=== PATIENT | male | born 2000 | race Caucasian/White ===

== ENCOUNTER → 2018-01-27 | Outpatient (CLI) | payer BC ==
[~2018-01-27] MED LIST: IBUP-1050 PO
--- NOTE | 2018-01-27 14:56 | DIAGNOSTIC IMAGING REPORT ---
R HIP UNILATERAL MIN 2 VIEWS CLINICAL HISTORY: RIGHT HIP PAIN COMPARISON: None FINDINGS: Alignment of the right hip is anatomic. No fracture or suspicious lesion is identified. Joint space is preserved. There is no evidence for avascular necrosis. IMPRESSION: Unremarkable right hip radiographs. Electronically signed by: Lazaro Mcgill M.D. 01/27/2018 2:54 PM Dictated Date/Time: 01/27/2018 2:49 PM
== END | disposition home or self-care (01) ==
LOC: C.RDSM 18:07
PROVIDERS: ATTEND Family Medicine
DX: M25.551 Pain in right hip (principal)

== ENCOUNTER 2020-12-09 20:19 | Inpatient (IN) ==
[2020-12-09 20:58] LABS: Appearance Urine Cloudy (Clear); Bacteria Urine Automated Negative (Negative); Bilirubin Urine Negative (Negative); Blood Urine Negative (Negative); Cast Urine Automated 0 /lpf (0-5); Color Urine Yellow; Epithelial Cell Urine Auto 0-5 /lpf (0-5); Glucose Urine UA Negative (Negative); Ketones Urine Negative (Negative); Leukocyte Esterase Urine Negative (Negative); Nitrite Urine Negative (Negative); Protein Urine Negative (Negative); RBC Urine Automated 0-4 /hpf (0-4); Specific Gravity Urine 1.021 (1.000-1.030); Urobilinogen Urine Negative (Negative); WBC Urine Automated 0 /hpf (0-5)
[2020-12-09 21:13] LABS: Amphetamines+Metham, Urine Neg (Neg); Barbiturates, Urine Neg (Neg); Benzodiazepine, Urine Neg (Neg); Cocaine, Urine Neg (Neg); MDMA (Ecstacy), Urine Neg (Neg); Methadone, Urine Neg (Neg); Opiate, Urine Neg (Neg); Phencyclidine, Urine Neg (Neg)
[2020-12-09 21:20] LABS: Basophils # (auto) 0.01 K/uL (0-0.2); Basophils % (auto) 0.2 %; Eosinophils # (auto) 0.08 K/uL (0-0.5); Eosinophils % (auto) 1.4 %; Hematocrit (blood only) 45.5 % (42-52); Hemoglobin 15.6 g/dL (14.0-18.0); Lymphocytes # (auto) 2.06 K/uL (1.2-3.4); Lymphocytes % (auto) 35.5 %; Mean Corpuscular Hemoglobin 30.3 pg (25-34); Mean Corpuscular Hgb Conc 34.3 g/dL (32-36); Mean Corpuscular Volume 88.3 fL (80-100); Mean Platelet Volume 9.5 fL (7.4-10.4); Monocytes # (auto) 0.35 K/uL (0.11-0.59); Neutrophils # (auto) 3.31 K/uL (1.4-6.5); Neutrophils % (auto) 56.9 %; Platelet Count 257 K/uL (130-400); RDW Standard Deviation 38.4 fL (36.4-46.3); Red Blood Count 5.15 M/uL (4.7-6.1); White Blood Count 5.81 K/uL (4.8-10.8)
[2020-12-09 21:36] LABS: Albumin Level 4.1 gm/dl (3.4-5.0); Calcium 9.2 mg/dl (8.5-10.1); Creatinine Clr Calc Pharmacy 93.1 ml/min; Est GFR (African American) 100.9; Est GFR (Non-African American) 87.1; Potassium 4.2 mmol/L (3.5-5.1)
[2020-12-09 21:47] LABS: Albumin Globulin Ratio 1.5 (0.9-2); Bilirubin,Total 0.6 mg/dl (0.2-1); Globulin 2.8 gm/dl (2.5-4.0); Thyroid Stimulating Hormone 2.05 uIu/ml (0.300-4.500); Total Protein 6.9 gm/dl (6.4-8.2)
[2020-12-09 21:48] LABS: Acetaminophen < 2 ug/ml (10-30); Salicylate < 1.7 mg/dl (2.8-20)
--- NOTE | 2020-12-10 01:30 | Emergency Department Note ---
Impression & Plan Mood disorder, Suicidal ideation ED Provider Note INFORMANT: Patient ED PROVIDER(S): Jeffery Altman MD CHIEF COMPLAINT: Mental health evaluation PLAN: Disposition: Admitted to 3 S. Condition: Good Outpatient prescription management: none Referral: None MEDICAL DECISION MAKING: Patient presented to emergency room complaining of suicidal ideation. Physical examination did not reveal any emergent medical findings. He had unremarkable blood work and tox screen. The patient was evaluated by the ER psychiatric catalytic case operator. Referral was made to 3 . The patient was evaluated by the 3 S. liaison. The patient was voluntarily admitted for further management. Triage Nursing notes reviewed and agree them. Additional history obtained from patient's mother. Vital Signs: reviewed and remarkable for no significant abnormalities Differential diagnosis: Mood disorder, infection, hypoglycemia, electrolyte abnormalities, cardiac sources, intracerebral event, toxicologic, trauma, neurologic, as well as other pathologies. Diagnostics interpreted by me: Imaging studies: Deferred Consultation(s): 3 S. mental health HPI: The patient is a 20 year old male who presents to the Emergency Room with complaints of suicidal ideation. This started a few weeks ago worsening and is worsening. The patient also notes the following associated symptoms, anxiety and depression. The patient has found no relieving factors. Current pain is rated as 0/10. Patient states he was using marijuana for years to self medicate. He stopped 2 weeks ago. He has previously seen psychiatry. No recent medical illnesses. Pt denies LOC, headache, fevers, chills, diaphoresis, visual changes, neck pain, chest pain, breathing difficulties, nausea, vomiting, abdominal pain, back pain, melena, hematochezia, urinary symptoms, numbness, weakness, lymphadenopathy, rash, or other complaints. ROS: See above HPI for pertinent positives & negatives. A total of 10 systems reviewed and were otherwise negative. PAST MEDICAL HISTORY:See Below , mood disorder PAST SURGICAL HISTORY:See Below, FAMILY HISTORY:See Below SOCIAL HISTORY:See Below, marijuana abuse HOME MEDICATIONS:See Below ALLERGIES:See Below VITALS:See Below PHYSICAL EXAMINATION: GENERAL: Awake, alert, mildly depressed-appearing, in no distress HENT: Normocephalic, atraumatic. Oropharynx unremarkable. EYES: Normal conjunctiva. Sclera non-icteric. NECK: Inspection normal. Non-tender. Supple. No nuchal rigidity. FROM. No masses. RESPIRATORY: Clear to auscultation. No wheezes. No rales. Normal respiratory ef fort. CARDIAC: Normal rate. Normal rhythm. No murmurs. No rubs. Extremities warm and well perfused. Pulses equal. No JVD. GI: Soft, non-distended. No tenderness to palpation. No rebound or guarding. No masses. RECTAL: Deferred. MUSCULOSKELETAL: Atraumatic. Chest examination reveals no tenderness. The back is symmetrical on inspection without obvious abnormality. There is no CVA tenderness to palpation. No joint edema. LOWER EXTREMITIES: Calves are equal size bilaterally and non-tender. No edema. No discoloration. NEURO: Normal sensorium. No sensory or motor deficits noted. SKIN: No rash or jaundice noted. PSYCH: Suicidal ideation. Depressed mood and flat affect. No hallucinations or delusions. Jeffery Altman MD Past Med/Surg History Medical History (Updated 12/10/20 @ 01:29 by Jeffery Altman MD) Fever Lyme disease Myalgia Stomach problems Family History Other No pertinent family history in first degree relatives Social History Smoking Status: Current every day smoker Tobacco Type: E-cigarettes / Vaping Feels Safe at Home: Yes Allergies Allergies Allergy/AdvReac Type Severity Reaction Status Date / Time No Known Allergies Allergy Verified 12/09/20 21:13 Home Meds Home Medications Medication Instructions Recorded Confirmed No Known Home Medications 12/09/20 12/09/20 Results & Data (ED) Vital Signs Vital Signs - 24 hr 12/09/20 20:23 12/09/20 22:20 Temperature 37.2 C Temperature Source Temporal Artery Scan Pulse Rate 75 Pulse Rate [Finger] 61 Respiratory Rate 18 14 Respiratory Effort / Characteristics Non-Labored Spontaneous Respiratory Depth Normal Respiratory Pattern Regular Blood Pressure 146/89 H Blood Pressure [Right Arm] 127/79 Blood Pressure Mean 108 Blood Pressure Mean [Right Arm] 95 Blood Pressure Position Sitting Pulse Oximetry 99 100 Oxygen Delivery Method Room Air Room Air Sepsis Recent Fever Within 48 Hours No Sepsis New/Unexplained Change in Mental Status No Sepsis Action Taken by Nursing No Action Required Laboratory Data Result diagrams: 12/09/20 21:05 12/09/20 21:05 Lab Results 12/09/20 12/09/20 12/09/20 Range/Units 20:43 20:43 21:05 WBC 5.81 (4.8-10.8) K/uL RBC 5.15 (4.7-6.1) M/uL Hgb 15.6 (14.0-18.0) g/dL Hct 45.5 (42-52) % MCV 88.3 (80-100) fL MCH 30.3 (25-34) pg MCHC 34.3 (32-36) g/dL RDW Std Deviation 38.4 (36.4-46.3) fL RDW Coeff of Gregory 12.0 (11.5-14.5) % Plt Count 257 (130-400) K/uL MPV 9.5 (7.4-10.4) fL Immature Gran % (Auto) 0.0 % Neut % (Auto) 56.9 % Lymph % (Auto) 35.5 % [place] % (Auto) 6.0 % Eos % (Auto) 1.4 % Baso % (Auto) 0.2 % Neut # (Auto) 3.31 (1.4-6.5) K/uL Lymph # (Auto) 2.06 (1.2-3.4) K/uL [place] # (Auto) 0.35 (0.11-0.59) K/uL Eos # (Auto) 0.08 (0-0.5) K/uL Baso # (Auto) 0.01 (0-0.2) K/uL Immature Gran # (Auto) 0.00 (0.00-0.02) K/uL Sodium (136-145) mmol/L Potassium (3.5-5.1) mmol/L Chloride (98-107) mmol/L Carbon Dioxide (21-32) mmol/L Anion Gap (3-11) BUN (7-18) mg/dl Creatinine (0.6-1.4) mg/dl Est Cr Clr Drug Dosing ml/min Est GFR ( Amer) Est GFR (Non-Af Amer) BUN/Creatinine Ratio (10-20) Glucose (70-99) mg/dl Calcium (8.5-10.1) mg/dl Total Bilirubin (0.2-1) mg/dl AST (15-37) U/L ALT (12-78) U/L Alkaline Phosphatase (45-117) U/L Total Protein (6.4-8.2) gm/dl Albumin (3.4-5.0) gm/dl Globulin (2.5-4.0) gm/dl Albumin/Globulin Ratio (0.9-2) TSH (0.300-4.500) uIu/ml Urine Color Yellow Urine Appearance Cloudy A (Clear) Urine pH 7.0 (4.5-7.5) Ur Specific [place] 1.021 (1.000-1.030) Urine Protein Negative (Negative) Urine Glucose (UA) Negative (Negative) Urine Ketones Negative (Negative) Urine Blood Negative (Negative) Urine Nitrite Negative (Negative) Urine Bilirubin Negative (Negative) Urine Urobilinogen Negative (Negative) Ur Leukocyte Esterase Negative (Negative) Urine WBC (Auto) 0 (0-5) /hpf Urine RBC (Auto) 0-4 (0-4) /hpf U Hyaline Cast (Auto) 0 (0-5) /lpf U Epithel Cells (Auto) 0-5 (0-5) /lpf Urine Bacteria (Auto) Negative (Negative) Salicylates (2.8-20) mg/dl Urine Opiates Screen Neg (Neg) Ur Methadone, Qual Neg (Neg) Acetaminophen (10-30) ug/ml Urine Barbiturates Neg (Neg) Ur Phencyclidine (PCP) Neg (Neg) U Amphetamin/Meth Scrn Neg (Neg) MDMA (Ecstasy) Screen Neg (Neg) U Benzodiazepines Scrn Neg (Neg) Ur Cocaine Metabolite Neg (Neg) U Marijuana (THC) Screen Neg (Neg) Ethyl Alcohol mg/dL (0-3) mg/dl COVID-19 Eval Order SARS-CoV-2, RNA, NAAT (NEGATIVE) 12/09/20 12/09/20 12/09/20 Range/Units 21:05 21:05 21:05 WBC (4.8-10.8) K/uL RBC (4.7-6.1) M/uL Hgb (14.0-18.0) g/dL Hct (42-52) % MCV (80-100) fL MCH (25-34) pg MCHC (32-36) g/dL RDW Std Deviation (36.4-46.3) fL RDW Coeff of Gregory (11.5-14.5) % Plt Count (130-400) K/uL MPV (7.4-10.4) fL Immature Gran % (Auto) % Neut % (Auto) % Lymph % (Auto) % [place] % (Auto) % Eos % (Auto) % Baso % (Auto) % Neut # (Auto) (1.4-6.5) K/uL Lymph # (Auto) (1.2-3.4) K/uL [place] # (Auto) (0.11-0.59) K/uL Eos # (Auto) (0-0.5) K/uL Baso # (Auto) (0-0.2) K/uL Immature Gran # (Auto) (0.00-0.02) K/uL Sodium 140 (136-145) mmol/L Potassium 4.2 (3.5-5.1) mmol/L Chloride 109 H (98-107) mmol/L Carbon Dioxide 27 (21-32) mmol/L Anion Gap 4.0 (3-11) BUN 15 (7-18) mg/dl Creatinine 1.18 (0.6-1.4) mg/dl Est Cr Clr Drug Dosing 93.1 ml/min Est GFR ( Amer) 100.9 Est GFR (Non-Af Amer) 87.1 BUN/Creatinine Ratio 13.0 (10-20) Glucose 100 H (70-99) mg/dl Calcium 9.2 (8.5-10.1) mg/dl Total Bilirubin 0.6 (0.2-1) mg/dl AST 16 (15-37) U/L ALT 24 (12-78) U/L Alkaline Phosphatase 102 (45-117) U/L Total Protein 6.9 (6.4-8.2) gm/dl Albumin 4.1 (3.4-5.0) gm/dl Globulin 2.8 (2.5-4.0) gm/dl Albumin/Globulin Ratio 1.5 (0.9-2) TSH 2.050 (0.300-4.500) uIu/ml Urine Color Urine Appearance (Clear) Urine pH (4.5-7.5) Ur Specific [place] (1.000-1.030) Urine Protein (Negative) Urine Glucose (UA) (Negative) Urine Ketones (Negative) Urine Blood (Negative) Urine Nitrite (Negative) Urine Bilirubin (Negative) Urine Urobilinogen (Negative) Ur Leukocyte Esterase (Negative) Urine WBC (Auto) (0-5) /hpf Urine RBC (Auto) (0-4) /hpf U Hyaline Cast (Auto) (0-5) /lpf U Epithel Cells (Auto) (0-5) /lpf Urine Bacteria (Auto) (Negative) Salicylates < 1.7 L (2.8-20) mg/dl Urine Opiates Screen (Neg) Ur Methadone, Qual (Neg) Acetaminophen < 2 L (10-30) ug/ml Urine Barbiturates (Neg) Ur Phencyclidine (PCP) (Neg) U Amphetamin/Meth Scrn (Neg) MDMA (Ecstasy) Screen (Neg) U Benzodiazepines Scrn (Neg) Ur Cocaine Metabolite (Neg) U Marijuana (THC) Screen (Neg) Ethyl Alcohol mg/dL < 3.0 (0-3) mg/dl COVID-19 Eval Order SARS-CoV-2, RNA, NAAT (NEGATIVE) 12/09/20 12/09/20 Range/Units 22:50 22:50 WBC (4.8-10.8) K/uL RBC (4.7-6.1) M/uL Hgb (14.0-18.0) g/dL Hct (42-52) % MCV (80-100) fL MCH (25-34) pg MCHC (32-36) g/dL RDW Std Deviation (36.4-46.3) fL RDW Coeff of Gregory (11.5-14.5) % Plt Count (130-400) K/uL MPV (7.4-10.4) fL Immature Gran % (Auto) % Neut % (Auto) % Lymph % (Auto) % [place] % (Auto) % Eos % (Auto) % Baso % (Auto) % Neut # (Auto) (1.4-6.5) K/uL Lymph # (Auto) (1.2-3.4) K/uL [place] # (Auto) (0.11-0.59) K/uL Eos # (Auto) (0-0.5) K/uL Baso # (Auto) (0-0.2) K/uL Immature Gran # (Auto) (0.00-0.02) K/uL Sodium (136-145) mmol/L Potassium (3.5-5.1) mmol/L Chloride (98-107) mmol/L Carbon Dioxide (21-32) mmol/L Anion Gap (3-11) BUN (7-18) mg/dl Creatinine (0.6-1.4) mg/dl Est Cr Clr Drug Dosing ml/min Est GFR ( Amer) Est GFR (Non-Af Amer) BUN/Creatinine Ratio (10-20) Glucose (70-99) mg/dl Calcium (8.5-10.1) mg/dl Total Bilirubin (0.2-1) mg/dl AST (15-37) U/L ALT (12-78) U/L Alkaline Phosphatase (45-117) U/L Total Protein (6.4-8.2) gm/dl Albumin (3.4-5.0) gm/dl Globulin (2.5-4.0) gm/dl Albumin/Globulin Ratio (0.9-2) TSH (0.300-4.500) uIu/ml Urine Color Urine Appearance (Clear) Urine pH (4.5-7.5) Ur Specific [place] (1.000-1.030) Urine Protein (Negative) Urine Glucose (UA) (Negative) Urine Ketones (Negative) Urine Blood (Negative) Urine Nitrite (Negative) Urine Bilirubin (Negative) Urine Urobilinogen (Negative) Ur Leukocyte Esterase (Negative) Urine WBC (Auto) (0-5) /hpf Urine RBC (Auto) (0-4) /hpf U Hyaline Cast (Auto) (0-5) /lpf U Epithel Cells (Auto) (0-5) /lpf Urine Bacteria (Auto) (Negative) Salicylates (2.8-20) mg/dl Urine Opiates Screen (Neg) Ur Methadone, Qual (Neg) Acetaminophen (10-30) ug/ml Urine Barbiturates (Neg) Ur Phencyclidine (PCP) (Neg) U Amphetamin/Meth Scrn (Neg) MDMA (Ecstasy) Screen (Neg) U Benzodiazepines Scrn (Neg) Ur Cocaine Metabolite (Neg) U Marijuana (THC) Screen (Neg) Ethyl Alcohol mg/dL (0-3) mg/dl COVID-19 Eval [facility]-2, RNA, NAAT NEGATIVE (NEGATIVE) Discharge Plan Visit Data Chief Complaint: Mental Health Evaluation Stated Complaint: MENTAL HEALTH EVAL ED Provider: Jeffery Altman Discharge Problem: Mood disorder, Suicidal ideation Forms Stand Alone Forms: My [facility], Suicide Prevention Resources Prescriptions Prescriptions: No Action No Known Home Medications RF: 0 Referrals Referrals: Tomas Beth MD [Primary Care Provider] -
[2020-12-10] MEDS ORDERED: MAGNESIUM HYDROXIDE SUSP 30 ML UDC PO PRN (02:23)
[2020-12-10] MEDS ORDERED: hydrOXYzine HCl 25 MG TAB PO PRN ×2 (02:23)
[2020-12-10] MEDS ORDERED: SODIUM CHLORIDE 0.65% NA SOLN 45 ML (OCEAN) PRN (02:23)
[2020-12-10] MEDS ORDERED: ACETAMINOPHEN 325 MG TAB PO PRN (02:23)
[2020-12-10] MEDS ORDERED: BISMUTH SUBSALICYLATE LIQD 236 ML PO PRN (02:23)
[2020-12-10] MEDS ORDERED: ALUMINUM/MAGNESIUM SUSP 30 ML UDC PO PRN (02:23)
[2020-12-10] MEDS ORDERED: risperiDONE 1 MG TABLET PO PRN (02:24)
--- NOTE | 2020-12-10 08:19 | History & Physical ---
Date of Service December 10, 2020 Impression / Recommendations (1) Suicidal ideation: 12/10 -continue voluntary hospitalization, suicide checks for safety. Encourage group attendance and participation. Work on healthy coping skills and discharge safety plan. Family meeting with parents; reviewed recommendations including no access to medications or guns. (2) Mood disorder: 12/10 - Reviewed differential diagnosis, including irritable depression or bipolar type II. Reviewed that his symptoms are consistent with irritable depression, but could also represent hypomanic symptoms, although he reports chronic racing thoughts and irritability, rather than discrete episodes of hypomania. He does not meet full criteria for hypomania or bipolar 2. Discussed options of treating with an SSRI versus a mood stabilizer such as lamotrigine, which he did try in the past but cannot recall his response to, was also being taken along with an antipsychotic. Discussed the risks, benefits, and side effects of each, including the need to monitor for mood destabilization if we start with an antidepressant. After discussion he opted for a trial of sertraline. Reviewed the risk of destabilization, worsening irritability or anxiety, and the need to monitor for this, especially when initially starting the medication. Reviewed that it will take 4 to 6 weeks to see the full effect. Start 25 mg daily today and increase to 50 mg daily tomorrow. (3) Alcohol abuse: 12/10 - Brief intervention was offered and accepted Intervention (if performed) was greater than 5 min in length. Brief interventions include: 1. Assess Readiness to Quit, 2. Advise: Help Patient to Reduce or Abstain from Alcohol, 3. Agree: Set Specific, Feasible Goals, 4. Assist: Anticipate barriers, Problem-Solving Solutions. Social work to 5. Arrange: Referrals to appropriate treatment. Summary of intervention: The patient is in precontemplation stage with regards to transtheoretical model of change. The patient is advised to decrease alcohol consumption due to depressant effects and risk of interactions with prescription medications. The patient agreed to cut back on use, and will be provided with recovery materials to continue to education self on how to cope with their condition without drinking. -Referral for dual diagnosis outpatient treatment. Recovery protocol. (4) Cannabis abuse: 12/10 -patient was smoking daily, reports he stopped 2 weeks ago. Encourage ongoing efforts to reduce substance use, and refer for dual diagnosis outpatient treatment as above. Risk Factors Assessment Male: Yes : Yes Do You Have Access To A Gun?: Yes (At father's home, locked in a gun safe) Health Problems: No Mental Health Diagnoses: Yes Substance Use Disorders: Yes Previous Psychiatric Hospitalization: No Smoker: Yes Protective Factors Assessment : No Responsible for Young Children: No Employed: No Stable Relationships: No Supportive Family: Yes Good Rapport with Provider: No Psychiatric History Identifying Data LUZ SUGGS is a 20-year-old M who currently lives in [place] with his father, has a history of bipolar and substance abuse, and was admitted on 12/10/20 00:44 on a 201 voluntary commitment for suicidal ideation. Chief Complaint "A bunch of suicidal thoughts." History of Present Illness Presented to the ER with his mother early this morning reporting suicidal ideation. He reported worsening mood and anxiety for the past few weeks, with alcohol and marijuana abuse, and self injury by superficial cutting 2 weeks ago. He reported poor appetite, excessive sleep (10-14 hours a day), and intermittent anxiety. He said he had been depressed for at least 5 years, with poor motivation and lack of energy. He said he stopped smoking marijuana 2 weeks ago, and since then, his appetite has improved, but he does not eat a healthy diet. He reported a history of verbal aggression, but denied thoughts of harming others. He agreed to voluntary admission. Admission labs were unremarkable. On my assessment, he says he decided to quit smoking pot as he was "just being immature, a lazy stoner, time to grow up." He says he hasn't gone more than 3 days without smoking in the past 5 years, was smoking 5 times a day, and feels more irritable over the past 2 weeks since stopping. He says he "just hasn't been in the mood" to go to class or do his work, and has been thinking about "just dropping out." He decided to come in as he was thinking more about suicide, told his mother, who encouraged him to come in. His mother lives in [place] and brought him in. States mood has been depressed and irritable for years, but worsened after he quit smoking. He reports anhedonia and decreased interest most days, but some days enjoys video games or time with friends. Describes himself as "very social" and likes to spend time with friends, mostly smoking pot together. Notes pattern of finding new hobbies and getting into them for a couple months then losing interest. Most recent interest was the stock market, investing money he had saved. 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 He reports moods that cycle from "really depressed" to "really angry for days on end," with periods of up to a few months of good mood with high energy and productivity, "then I hit a wall." He denies decreased need for sleep, increase in risk taking behavior, but reports persistent racing thoughts, although denies FOI, psychosis. He reports good focus on things he likes, like video games and his hobbies. He reports anxiety with "constant worry about the future, thinking ahead too much, what I'm gonna do, if I'm making the right choices or not." Denies panic attacks, OCD, PTSD. He has had multiple brief episodes of treatment, says he was never diagnosed with bipolar disorder but was prescribed medication for bipolar disorder. He is poorly able to recall past clinicians or medications. Past Psychiatric History Previous Psych History: Previously saw 2 or 3 psychiatrists or therapists, each 1 or 2 times, (Randolph Dunaway at [facility]), is not sure what their credentials were. Says the psychiatrist didn't think he had bipolar disorder but prescribed medication for bipolar disorder. His school tested him for ADHD and he did not have it, but did have symptoms of depression and anxiety. Current Psychiatric Diagnosis: depression and substance abuse Outpatient Services: None Previous Psych Admissions: Denies Do You Have Access To A Gun?: Yes (At father's home, locked in a gun safe) History of Previous Suicide Attempt: No Past Medication Trials: lorazepam fluoxetine in HS but took only very briefly "an antipsychotic and anticonvulsant," can't recall the names, thinks he took for at most 3 months, stopped because "I was a zombie, very dull" Allergies Allergy/AdvReac Type Severity Reaction Status Date / Time No Known Allergies Allergy Verified 12/09/20 21:13 Home Medications Medication Instructions Recorded Confirmed Type No Known Home Medications 12/09/20 12/09/20 History Family History Family History of: Depression and Bipolar Alcohol History Hx of Alcohol Use Over the Past 12 Months: Yes (binge drinks weekly) AUDIT Total Score: 18 Drinking move over past two weeks, got intoxicated 4 times (6+ drinks). Reports "doing stupid things" when drunk, "saying dumb things to people." Smoking Use Have You Smoked or Used Tobacco Products in the Last 30 Days: Yes tobacco type: e-cigarettes Smoking Status: Current every day smoker Substance History Hx of Prescription Med Misuse Over the Past 12 Months: No Hx of Over the Counter Med Misuse Over the Past 12 Months: No Hx of Inhalent Misuse Over the Past 12 Months: No Hx of Organic Substance Use Over the Past 12 Months: Yes (Marijuana daily x 5 years (says quit 2 weeks ago)) Hx of Illegal Substances/Street Drug Use Over Past 12 Months: No Problems as a Result of Past Substance Use: Sustained Bodily Harm (cut shoulder 2 weeks ago) Problems as a Result of Past Substance Use Comments: embarassed by behavior, says inappropriate things, more depressed History of Xanax abuse in high school, not prescribed Personal History Living Arrangements: Home Living Arrangements Comments: with father in [place], mother lives in [place] Childhood: Grew up in [place], raised by both parents until they . Two older sisters who live out of [facility]. Good relationship with father, feels mother "is always telling me what I'm doing wrong, trying to tell me to stop smoking." Highest Grade Completed: High School Graduate Highest Grade Completed Comment: Initially attended [employer] but didn't do well and dropped out when grandfather told him he would no longer pay for it if he wasn't performing well. He tried to join the but was rejected d/t spinal stenosis. Started attending [employer] in 2020 and is currently a sophomore (on his 3rd full semester). Majoring in computer science. Employment Status: Student (at [employer], and works PT delivering laundry) Marital Status: Single Beliefs That Will Affect Care: None Current Legal Problems: No Hx Traumatic Life Events: No Patient History Medical History (Updated 12/10/20 @ 08:57 by Paulette Mendoza MD) Alcohol abuse Cannabis abuse Fever Lyme disease Myalgia Stomach problems Family History Other No pertinent family history in first degree relatives Social History Smoking Status: Current every day smoker Tobacco Type: E-cigarettes / Vaping Preferred Language: Frisian Communication Ability: Effective Recreation Director Required: No Beliefs That Will Affect Care: None Feels Safe at Home: Yes Assistive Devices: None Review of Systems Review of Systems: All systems reviewed & are unremarkable except as noted in Subjective Physical Exam Psychiatric: Orientation: alert and cooperative Apperance: appropriately dressed, appropriately groomed and appeared stated age Eye Contact: good eye contact Motor Behavior: steady gait and station and + psychomotor agitation (bouncing leg up and down) Speech: normal rate/rhythm/volume of speech Affect: + depressed affect, + constricted affect and mood congruent with affect Mood: + depressed mood Thought Process: goal directed thought process Thought Content: reality based without delusions Suicidal Thoughts: + reports suicidal thoughts Homicidal Thoughts: denies homicidal thoughts Hallucinations: no auditory hallucinations and no visual hallucinations Cognition: recent memory grossly intact, attention grossly intact and language grossly intact Estimated Intelligence: average estimated intelligence Insight: + limited insight Judgement: + limited judgement Vital Signs (Past 24 Hours): Last Vital Signs Temp 36.4 C L 12/10/20 06:46 Pulse 64 12/10/20 06:48 Resp 14 12/10/20 06:46 BP 101/67 12/10/20 06:48 Pulse Ox 99 12/10/20 02:26 Exam Statement: A physical exam was performed in the ER prior to admission to the unit by Dr. Altman. I accept that physical as correct/medical clearance for the inpatient physical exam. Results & Data ([facility]) Laboratory Results Laboratory Results - last 24 hr 12/09/20 12/09/20 12/09/20 20:43 20:43 21:05 WBC 5.81 RBC 5.15 Hgb 15.6 Hct 45.5 MCV 88.3 MCH 30.3 MCHC 34.3 RDW Std Deviation 38.4 RDW Coeff of Gregory 12.0 Plt Count 257 MPV 9.5 Immature Gran % (Auto) 0.0 Neut % (Auto) 56.9 Lymph % (Auto) 35.5 [place] % (Auto) 6.0 Eos % (Auto) 1.4 Baso % (Auto) 0.2 Neut # (Auto) 3.31 Lymph # (Auto) 2.06 [place] # (Auto) 0.35 Eos # (Auto) 0.08 Baso # (Auto) 0.01 Immature Gran # (Auto) 0.00 Sodium Potassium Chloride Carbon Dioxide Anion Gap BUN Creatinine Est Cr Clr Drug Dosing Est GFR ( Amer) Est GFR (Non-Af Amer) BUN/Creatinine Ratio Glucose Calcium Total Bilirubin AST ALT Alkaline Phosphatase Total Protein Albumin Globulin Albumin/Globulin Ratio TSH Urine Color Yellow Urine Appearance Cloudy A Urine pH 7.0 Ur Specific Kimberly 1.021 Urine Protein Negative Urine Glucose (UA) Negative Urine Ketones Negative Urine Blood Negative Urine Nitrite Negative Urine Bilirubin Negative Urine Urobilinogen Negative Ur Leukocyte Esterase Negative Urine WBC (Auto) 0 Urine RBC (Auto) 0-4 U Hyaline Cast (Auto) 0 U Epithel Cells (Auto) 0-5 Urine Bacteria (Auto) Negative Salicylates Urine Opiates Screen Neg Ur Methadone, Qual Neg Acetaminophen Urine Barbiturates Neg Ur Phencyclidine (PCP) Neg U Amphetamin/Meth Scrn Neg MDMA (Ecstasy) Screen Neg U Benzodiazepines Scrn Neg Ur Cocaine Metabolite Neg U Marijuana (THC) Screen Neg Ethyl Alcohol mg/dL COVID-19 Eval Order SARS-CoV-2, RNA, NAAT 12/09/20 12/09/20 12/09/20 21:05 21:05 21:05 WBC RBC Hgb Hct MCV MCH MCHC RDW Std Deviation RDW Coeff of Gregory Plt Count MPV Immature Gran % (Auto) Neut % (Auto) Lymph % (Auto) [place] % (Auto) Eos % (Auto) Baso % (Auto) Neut # (Auto) Lymph # (Auto) [place] # (Auto) Eos # (Auto) Baso # (Auto) Immature Gran # (Auto) Sodium 140 Potassium 4.2 Chloride 109 H Carbon Dioxide 27 Anion Gap 4.0 BUN 15 Creatinine 1.18 Est Cr Clr Drug Dosing 93.1 Est GFR ( Amer) 100.9 Est GFR (Non-Af Amer) 87.1 BUN/Creatinine Ratio 13.0 Glucose 100 H Calcium 9.2 Total Bilirubin 0.6 AST 16 ALT 24 Alkaline Phosphatase 102 Total Protein 6.9 Albumin 4.1 Globulin 2.8 Albumin/Globulin Ratio 1.5 TSH 2.050 Urine Color Urine Appearance Urine pH Ur Specific Kimberly Urine Protein Urine Glucose (UA) Urine Ketones Urine Blood Urine Nitrite Urine Bilirubin Urine Urobilinogen Ur Leukocyte Esterase Urine WBC (Auto) Urine RBC (Auto) U Hyaline Cast (Auto) U Epithel Cells (Auto) Urine Bacteria (Auto) Salicylates < 1.7 L Urine Opiates Screen Ur Methadone, Qual Acetaminophen < 2 L Urine Barbiturates Ur Phencyclidine (PCP) U Amphetamin/Meth Scrn MDMA (Ecstasy) Screen U Benzodiazepines Scrn Ur Cocaine Metabolite U Marijuana (THC) Screen Ethyl Alcohol mg/dL < 3.0 COVID-19 Eval Order SARS-CoV-2, RNA, NAAT 12/09/20 12/09/20 22:50 22:50 WBC RBC Hgb Hct MCV MCH MCHC RDW Std Deviation RDW Coeff of Gregory Plt Count MPV Immature Gran % (Auto) Neut % (Auto) Lymph % (Auto) [place] % (Auto) Eos % (Auto) Baso % (Auto) Neut # (Auto) Lymph # (Auto) [place] # (Auto) Eos # (Auto) Baso # (Auto) Immature Gran # (Auto) Sodium Potassium Chloride Carbon Dioxide Anion Gap BUN Creatinine Est Cr Clr Drug Dosing Est GFR ( Amer) Est GFR (Non-Af Amer) BUN/Creatinine Ratio Glucose Calcium Total Bilirubin AST ALT Alkaline Phosphatase Total Protein Albumin Globulin Albumin/Globulin Ratio TSH Urine Color Urine Appearance Urine pH Ur Specific Kimberly Urine Protein Urine Glucose (UA) Urine Ketones Urine Blood Urine Nitrite Urine Bilirubin Urine Urobilinogen Ur Leukocyte Esterase Urine WBC (Auto) Urine RBC (Auto) U Hyaline Cast (Auto) U Epithel Cells (Auto) Urine Bacteria (Auto) Salicylates Urine Opiates Screen Ur Methadone, Qual Acetaminophen Urine Barbiturates Ur Phencyclidine (PCP) U Amphetamin/Meth Scrn MDMA (Ecstasy) Screen U Benzodiazepines Scrn Ur Cocaine Metabolite U Marijuana (THC) Screen Ethyl Alcohol mg/dL COVID-19 Eval Order Covid19 [facility] SARS-CoV-2, RNA, NAAT NEGATIVE Current Inpatient Medications Current Inpatient Medications: Current Inpatient Medications Acetaminophen (Acetaminophen 325 Mg Tab) 650 mg PO Q4H PRN PRN Reason: Headache or Minor Fever Stop: 01/09/21 02:22 Al Hydrox/Mg Hydrox/Simethicone (Aluminum/Magnesium Susp 30 Ml Udc) 30 ml PO Q4H PRN PRN Reason: GI Upset Stop: 01/09/21 02:22 Bismuth Subsalicylate (Bismuth Subsalicylate Liqd 236 Ml) 15 ml PO PRN PRN PRN Reason: Loose Stool Stop: 01/09/21 02:22 Hydroxyzine HCl (Hydroxyzine Hcl 25 Mg Tab) 50 mg PO HSZ PRN PRN Reason: Insomnia Stop: 01/09/21 02:22 Hydroxyzine HCl (Hydroxyzine Hcl 25 Mg Tab) 25 mg PO Q4H PRN PRN Reason: Anxiety Stop: 01/09/21 02:22 Magnesium Hydroxide (Magnesium Hydroxide Susp 30 Ml Udc) 30 ml PO DAILY PRN PRN Reason: Constipation Stop: 01/09/21 02:22 Risperidone (Risperidone 1 Mg Tablet) 1 mg PO Q6 PRN PRN Reason: agitation/psychosis Stop: 01/09/21 05:59 Sodium Chloride (Sodium Chloride 0.65% Na Soln 45 Ml ([place])) 1 - 2 sprays NA PRN PRN PRN Reason: Nasal Dryness/Congestion Stop: 01/09/21 02:22
[2020-12-10] MEDS ORDERED: SERTRALINE HCL 50 MG TABLET PO ONE (10:56)
--- NOTE | 2020-12-11 08:54 | Psychiatric Progress Note ---
Date of Service December 11, 2020 Impression / Recommendations (1) Suicidal ideation: 12/10 -continue voluntary hospitalization, suicide checks for safety. Encourage group attendance and participation. Work on healthy coping skills and discharge safety plan. Family meeting with parents; reviewed recommendations including no access to medications or guns. 12/11 - Pt denies SI today, more focused on discharge - Pt encouraged to focus on group programming - Family meeting via phone with mother today (2) Mood disorder: 12/10 - Reviewed differential diagnosis, including irritable depression or bipolar type II. Reviewed that his symptoms are consistent with irritable depression, but could also represent hypomanic symptoms, although he reports chronic racing thoughts and irritability, rather than discrete episodes of hypomania. He does not meet full criteria for hypomania or bipolar 2. Discussed options of treating with an SSRI versus a mood stabilizer such as lamotrigine, which he did try in the past but cannot recall his response to, was also being taken along with an antipsychotic. Discussed the risks, benefits, and side effects of each, including the need to monitor for mood destabilization if we start with an antidepressant. After discussion he opted for a trial of sertraline. Reviewed the risk of destabilization, worsening irritability or anxiety, and the need to monitor for this, especially when initially starting the medication. Reviewed that it will take 4 to 6 weeks to see the full effect. Start 25 mg daily today and increase to 50 mg daily tomorrow. 12/11 - Continue sertraline trial - patient continues with excessive sleeping on the unit and irritability, but staff have not reported any evidence of activation thus far. Reviewed titration options to escalate sertraline dosage and patient reported feeling comfortable with dose of 100mg to be given tomorrow. He was reminded again about need to monitor for activation and dramatic mood changes. - Refer for psychiatric medication management - Family meeting with mother via phone this afternoon - Pt was encouraged to spend more time out of his room and engaged in group programming, given that he is reporting he is bored and focused on discharge - Encourage completion of written safety plan (3) Alcohol abuse: 12/10 - Brief intervention was offered and accepted Intervention (if performed) was greater than 5 min in length. Brief interventions include: 1. Assess Readiness to Quit, 2. Advise: Help Patient to Reduce or Abstain from Alcohol, 3. Agree: Set Specific, Feasible Goals, 4. Assist: Anticipate barriers, Problem-Solving Solutions. Social work to 5. Arrange: Referrals to appropriate treatment. Summary of intervention: The patient is in precontemplation stage with regards to transtheoretical model of change. The patient is advised to decrease alcohol consumption due to depressant effects and risk of interactions with prescription medications. The patient agreed to cut back on use, and will be provided with recovery materials to continue to education self on how to cope with their condition without drinking. -Referral for dual diagnosis outpatient treatment. Recovery protocol. 11/21 - Pt has been referred to [facility] for dual-diagnosis counseling - awaiting approval and appointment scheduling (4) Cannabis abuse: 12/10 -patient was smoking daily, reports he stopped 2 weeks ago. Encourage ongoing efforts to reduce substance use, and refer for dual diagnosis outpatient treatment as above. 12/11 - Referred to [facility], awaiting appointment Risk Factors Assessment Male: Yes : Yes Do You Have Access To A Gun?: Yes (At father's home, locked in a gun safe) Health Problems: No Mental Health Diagnoses: Yes Substance Use Disorders: Yes Previous Psychiatric Hospitalization: No Smoker: Yes Protective Factors Assessment : No Responsible for Young Children: No Employed: No Stable Relationships: No Supportive Family: Yes Good Rapport with Provider: No Interval History Identifying Information LUZ SUGGS is a 20-year-old M who currently lives in [place] with his father, has a history of bipolar and substance abuse, and was admitted on 12/10/20 00:44 on a 201 voluntary commitment for suicidal ideation. Chief Complaint "Um, pretty bored." Review of Systems Notes Constitutional: reports poor sleep last evening due to sleeping a large part of the afternoon Cardiovascular: denied Respiratory: denied Gastrointestinal: denied Neurological: denied Psychiatric: denies symptoms other than stated above Total of at least 10 systems reviewed, pertinent positives as above and in HPI. Sleep Information Total Hours of Sleep: 11.5 Sleep Comments: pt on q-15 minute checks Meal Information Percent Meal Consumed - Breakfast: 100 Percent Meal Consumed - Lunch: 60 Percent Meal Consumed - Dinner: 10 Subjective Subjective Patient was seen & assessed and interval progress reviewed with treatment team. Staff report the patient had slept for most of the afternoon, and refused most evening groups. A family meeting with scheduled with patient's mother for this afternoon. Staff continue to describe the patient's affect as "flat" but "superficially pleasant during interactions." Pt was seen today to assess progress since admission. Pt shares with this provider that he is "fine" but also "pretty bored." Pt tells this provider he attended "all but one group last night, because I was napping" - which is inconsistent with staff's reports. Pt admits that he is hoping to leave after today's meeting, but did verbalize he is aware this is an unrealistic request. Pt reports several times during our conversation "I don't think I needed to come to the hospital, this is pretty excessive." We discussed that these thoughts could be used as a learning opportunity, to focus on what could have been done to help de-escalate his emotions and allow him to maintain safety without the hospital - so that these steps could be taken in the future. Pt admits that his motivation has been affected greatly since stopping is daily marijuana use. He admits that getting back into exercising regularly could be helpful. He also states that asking his mother to go for a walk or a hike for a "change of scenery" might have been helpful as well. Pt admits "I really think I just needed to vent, but I don't know." Pt was encouraged to discuss these ideas with his mother today during the meeting, as it would be helpful to review other supports that may benefit the patient during his treatment. Pt states he is still agreeable with dual diagnosis counseling and is interested in being consistent with his medications. We discussed options for sertraline dosing, and patient was offered to continue titration but with caution about carefully monitoring mood for signs of activation. Pt agreed to increase his dose to 100mg tomorrow morning. He admits he is still hopeful for a quick discharge, but verbalized understanding about our need to ensure mood stability and focus efforts on aftercare and safe discharge planning. Pt denied other needs or concerns at this time and was encouraged to focus on better group programming attendance today. Physical Exam Psychiatric Orientation: alert, oriented x 3 and + guarded (superficially cooperative ) Apperance: appropriately dressed, appropriately groomed and appeared stated age Eye Contact: good eye contact Motor Behavior: steady gait and station and no abnormal motor movements Speech: normal rate/rhythm/volume of speech Affect: + depressed affect Mood: + depressed mood ("I don't know, I'm still struggling") Thought Process: goal directed thought process Thought Content: reality based without delusions; no hopelessness and no worthlessness Suicidal Thoughts: denies suicidal thoughts, denies suicidal plan and denies suicidal intent Homicidal Thoughts: denies homicidal thoughts Hallucinations: no auditory hallucinations and no visual hallucinations Cognition: attention grossly intact and language grossly intact Estimated Intelligence: consistent with education level Insight: + fair insight Judgement: + fair judgement Vital Signs (Past 24 Hours) Last Vital Signs Temp 36.7 C 12/11/20 06:43 Pulse 56 L 12/11/20 06:45 Resp 16 12/11/20 06:43 BP 120/75 12/11/20 06:45 Pulse Ox 99 12/10/20 02:26 Results & Data ([facility]) Current Inpatient Medications Current Inpatient Medications: Current Inpatient Medications Acetaminophen (Acetaminophen 325 Mg Tab) 650 mg PO Q4H PRN PRN Reason: Headache or Minor Fever Stop: 01/09/21 02:22 Al Hydrox/Mg Hydrox/Simethicone (Aluminum/Magnesium Susp 30 Ml Udc) 30 ml PO Q4H PRN PRN Reason: GI Upset Stop: 01/09/21 02:22 Bismuth Subsalicylate (Bismuth Subsalicylate Liqd 236 Ml) 15 ml PO PRN PRN PRN Reason: Loose Stool Stop: 01/09/21 02:22 Hydroxyzine HCl (Hydroxyzine Hcl 25 Mg Tab) 50 mg PO HSZ PRN PRN Reason: Insomnia Stop: 01/09/21 02:22 Hydroxyzine HCl (Hydroxyzine Hcl 25 Mg Tab) 25 mg PO Q4H PRN PRN Reason: Anxiety Stop: 01/09/21 02:22 Magnesium Hydroxide (Magnesium Hydroxide Susp 30 Ml Udc) 30 ml PO DAILY PRN PRN Reason: Constipation Stop: 01/09/21 02:22 Risperidone (Risperidone 1 Mg Tablet) 1 mg PO Q6 PRN PRN Reason: agitation/psychosis Stop: 01/09/21 05:59 Sertraline HCl (Sertraline Hcl 50 Mg Tablet) 50 mg PO QAM RENEE Stop: 01/10/21 08:59 Sodium Chloride (Sodium Chloride 0.65% Na Soln 45 Ml ([facility])) 1 - 2 sprays NA PRN PRN PRN Reason: Nasal Dryness/Congestion Stop: 01/09/21 02:22 Mental Health & Subst Abuse Tx Therapist Name of Therapist: none
[2020-12-11] MEDS ORDERED: SERTRALINE HCL 50 MG TABLET PO SCH (09:00)
[2020-12-12] MEDS ORDERED: SERTRALINE HCL 100 MG TABLET PO SCH (09:00)
--- NOTE | 2020-12-12 11:13 | Discharge Summary ---
Date of Service December 12, 2020 History of Present Illness Presented to the ER with his mother early this morning reporting suicidal ideation. He reported worsening mood and anxiety for the past few weeks, with alcohol and marijuana abuse, and self injury by superficial cutting 2 weeks ago. He reported poor appetite, excessive sleep (10-14 hours a day), and intermittent anxiety. He said he had been depressed for at least 5 years, with poor motivation and lack of energy. He said he stopped smoking marijuana 2 weeks ago, and since then, his appetite has improved, but he does not eat a healthy diet. He reported a history of verbal aggression, but denied thoughts of harming others. He agreed to voluntary admission. Admission labs were unremarkable. On my assessment, he says he decided to quit smoking pot as he was "just being immature, a lazy stoner, time to grow up." He says he hasn't gone more than 3 days without smoking in the past 5 years, was smoking 5 times a day, and feels more irritable over the past 2 weeks since stopping. He says he "just hasn't been in the mood" to go to class or do his work, and has been thinking about "just dropping out." He decided to come in as he was thinking more about suicide, told his mother, who encouraged him to come in. His mother lives in [place] and brought him in. States mood has been depressed and irritable for years, but worsened after he quit smoking. He reports anhedonia and decreased interest most days, but some days enjoys video games or time with friends. Describes himself as "very social" and likes to spend time with friends, mostly smoking pot together. Notes pattern of finding new hobbies and getting into them for a couple months then losing interest. Most recent interest was the stock market, investing money he had saved. 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 He reports moods that cycle from "really depressed" to "really angry for days on end," with periods of up to a few months of good mood with high energy and productivity, "then I hit a wall." He denies decreased need for sleep, increase in risk taking behavior, but reports persistent racing thoughts, although denies FOI, psychosis. He reports good focus on things he likes, like video games and his hobbies. He reports anxiety with "constant worry about the future, thinking ahead too much, what I'm gonna do, if I'm making the right choices or not." Denies panic attacks, OCD, PTSD. He has had multiple brief episodes of treatment, says he was never diagnosed with bipolar disorder but was prescribed medication for bipolar disorder. He is poorly able to recall past clinicians or medications. Physical Exam Psychiatric Orientation: alert and cooperative Apperance: appropriately dressed, appropriately groomed and appeared stated age Eye Contact: good eye contact Motor Behavior: steady gait and station and no abnormal motor movements Speech: normal rate/rhythm/volume of speech Affect: euthymic affect and mood congruent with affect "pretty good." Thought Process: goal directed thought process and linear/logical thought process Thought Content: reality based without delusions Suicidal Thoughts: denies suicidal thoughts Homicidal Thoughts: denies homicidal thoughts Hallucinations: no auditory hallucinations Cognition: recent memory grossly intact, attention grossly intact and language grossly intact Estimated Intelligence: average estimated intelligence Insight: + fair insight Judgement: + fair judgement Vital Signs (Past 24 Hours) Last Vital Signs Temp 36.5 C 12/12/20 06:22 Pulse 79 12/12/20 06:24 Resp 16 12/12/20 06:22 BP 111/67 12/12/20 06:24 Pulse Ox 99 12/10/20 02:26 Principal Diagnosis Depression not otherwise specified (major depression versus bipolar 2) Cannabis use disorder Alcohol use disorder Psychiatric Data Patient was hospitalized for 2 days. On admission, he was started on sertraline, which was well-tolerated and titrated to 100 mg daily. He processed stressors, including uncertainty about his major wanting to remain in college, and disinterest with his classes. He ultimately decided to withdraw from school, and pursue work instead. Recovery protocol utilized regarding substance abuse, and he stated willingness to abstain, and was referred to [facility] for substance abuse treatment. He attended and participated in groups and therapy, and socialized with peers. He reported improved mood and resolution of suicidal thoughts. He had a family meeting with the social science manager and his mother on 12/11/2020; mother was supportive and denied acute safety concerns. Patient was disinterested, complained of being bored. He was referred to [facility] for outpatient psychiatric care. Day of Discharge Assessment Patient reports his mood is improved from admission, continues to deny suicidal thoughts, denies side effects to medications, and states willingness to follow- up with outpatient treatment. He is eating and sleeping well, and is requesting to leave the hospital, as he feels he has benefited maximally from the treatment offered. He would like to medically withdrawal from college and look for jobs, as he is not sure he wants to work in his current major. Transition of Care Transition Of Care Record: was reviewed with the patient Advance Directives Advance Directives Information Provided: Yes Advance Directives: No Mental Health Advance Directive: No Advance Directives on File: No Living Will: No Power of Material Lister: No Advance Directives Reason:: Declines as Mental Health Visit. Risk Factors Assessment Risk factors were mitigated by admission to the inpatient unit, use of medication to target mood symptoms, education about his diagnosis and the recommended treatment, recovery protocol and education about the risks of substance use and recommendations for abstinence and substance abuse treatment, referrals for outpatient dual diagnosis treatment, involving him in groups and therapy, working on healthy coping skills and a discharge safety plan, and family meeting with his mother. He is reporting improved mood, denying suicidal thoughts, has been tending to ADLs independently, eating and sleeping well, and taking medications as prescribed. He is requesting discharge, and as he is no longer at acute risk of harm to himself, can be managed as an outpatient at this time. Male: Yes : Yes Do You Have Access To A Gun?: Yes (At father's home, locked in a gun safe) Health Problems: No Mental Health Diagnoses: Yes Substance Use Disorders: Yes Previous Attempt: No Family History of Suicide: No Previous Psychiatric Hospitalization: No Hopelessness: No Smoker: Yes Protective Factors Assessment : No Responsible for Young Children: No Employed: No Stable Relationships: No Supportive Family: Yes Good Rapport with Provider: No Tobacco Cessation at Discharge Tobacco Cessation Medication Prescribed at Discharge: Offered & Pt Refused Practical counseling provided including: recognizing danger situations, developing coping skills and providing basic information about quitting Tobacco Cessation Outpatient Followup: Outpatient referral made to ([facility]) Total Time Total Time Spent: Greater Than 30 Minutes Total Time Includes: Examination of the patient, Discharge Planning and Medication Reconciliation Discharge Data Lab Results 12/09/20 12/09/20 12/09/20 20:43 20:43 21:05 WBC 5.81 RBC 5.15 Hgb 15.6 Hct 45.5 MCV 88.3 MCH 30.3 MCHC 34.3 RDW Std Deviation 38.4 RDW Coeff of Gregory 12.0 Plt Count 257 MPV 9.5 Immature Gran % (Auto) 0.0 Neut % (Auto) 56.9 Lymph % (Auto) 35.5 [place] % (Auto) 6.0 Eos % (Auto) 1.4 Baso % (Auto) 0.2 Neut # (Auto) 3.31 Lymph # (Auto) 2.06 [place] # (Auto) 0.35 Eos # (Auto) 0.08 Baso # (Auto) 0.01 Immature Gran # (Auto) 0.00 Sodium Potassium Chloride Carbon Dioxide Anion Gap BUN Creatinine Est Cr Clr Drug Dosing Est GFR ( Amer) Est GFR (Non-Af Amer) BUN/Creatinine Ratio Glucose Calcium Total Bilirubin AST ALT Alkaline Phosphatase Total Protein Albumin Globulin Albumin/Globulin Ratio TSH Urine Color Yellow Urine Appearance Cloudy A Urine pH 7.0 Ur Specific [place] 1.021 Urine Protein Negative Urine Glucose (UA) Negative Urine Ketones Negative Urine Blood Negative Urine Nitrite Negative Urine Bilirubin Negative Urine Urobilinogen Negative Ur Leukocyte Esterase Negative Urine WBC (Auto) 0 Urine RBC (Auto) 0-4 U Hyaline Cast (Auto) 0 U Epithel Cells (Auto) 0-5 Urine Bacteria (Auto) Negative Salicylates Urine Opiates Screen Neg Ur Methadone, Qual Neg Acetaminophen Urine Barbiturates Neg Ur Phencyclidine (PCP) Neg U Amphetamin/Meth Scrn Neg MDMA (Ecstasy) Screen Neg U Benzodiazepines Scrn Neg Ur Cocaine Metabolite Neg U Marijuana (THC) Screen Neg Ethyl Alcohol mg/dL COVID-19 Eval Order SARS-CoV-2, RNA, NAAT 12/09/20 12/09/20 12/09/20 21:05 21:05 21:05 WBC RBC Hgb Hct MCV MCH MCHC RDW Std Deviation RDW Coeff of Gregory Plt Count MPV Immature Gran % (Auto) Neut % (Auto) Lymph % (Auto) [place] % (Auto) Eos % (Auto) Baso % (Auto) Neut # (Auto) Lymph # (Auto) [place] # (Auto) Eos # (Auto) Baso # (Auto) Immature Gran # (Auto) Sodium 140 Potassium 4.2 Chloride 109 H Carbon Dioxide 27 Anion Gap 4.0 BUN 15 Creatinine 1.18 Est Cr Clr Drug Dosing 93.1 Est GFR ( Amer) 100.9 Est GFR (Non-Af Amer) 87.1 BUN/Creatinine Ratio 13.0 Glucose 100 H Calcium 9.2 Total Bilirubin 0.6 AST 16 ALT 24 Alkaline Phosphatase 102 Total Protein 6.9 Albumin 4.1 Globulin 2.8 Albumin/Globulin Ratio 1.5 TSH 2.050 Urine Color Urine Appearance Urine pH Ur Specific [place] Urine Protein Urine Glucose (UA) Urine Ketones Urine Blood Urine Nitrite Urine Bilirubin Urine Urobilinogen Ur Leukocyte Esterase Urine WBC (Auto) Urine RBC (Auto) U Hyaline Cast (Auto) U Epithel Cells (Auto) Urine Bacteria (Auto) Salicylates < 1.7 L Urine Opiates Screen Ur Methadone, Qual Acetaminophen < 2 L Urine Barbiturates Ur Phencyclidine (PCP) U Amphetamin/Meth Scrn MDMA (Ecstasy) Screen U Benzodiazepines Scrn Ur Cocaine Metabolite U Marijuana (THC) Screen Ethyl Alcohol mg/dL < 3.0 COVID-19 Eval Order SARS-CoV-2, RNA, NAAT 12/09/20 12/09/20 22:50 22:50 WBC RBC Hgb Hct MCV MCH MCHC RDW Std Deviation RDW Coeff of Gregory Plt Count MPV Immature Gran % (Auto) Neut % (Auto) Lymph % (Auto) [place] % (Auto) Eos % (Auto) Baso % (Auto) Neut # (Auto) Lymph # (Auto) [place] # (Auto) Eos # (Auto) Baso # (Auto) Immature Gran # (Auto) Sodium Potassium Chloride Carbon Dioxide Anion Gap BUN Creatinine Est Cr Clr Drug Dosing Est GFR ( Amer) Est GFR (Non-Af Amer) BUN/Creatinine Ratio Glucose Calcium Total Bilirubin AST ALT Alkaline Phosphatase Total Protein Albumin Globulin Albumin/Globulin Ratio TSH Urine Color Urine Appearance Urine pH Ur Specific [place] Urine Protein Urine Glucose (UA) Urine Ketones Urine Blood Urine Nitrite Urine Bilirubin Urine Urobilinogen Ur Leukocyte Esterase Urine WBC (Auto) Urine RBC (Auto) U Hyaline Cast (Auto) U Epithel Cells (Auto) Urine Bacteria (Auto) Salicylates Urine Opiates Screen Ur Methadone, Qual Acetaminophen Urine Barbiturates Ur Phencyclidine (PCP) U Amphetamin/Meth Scrn MDMA (Ecstasy) Screen U Benzodiazepines Scrn Ur Cocaine Metabolite U Marijuana (THC) Screen Ethyl Alcohol mg/dL COVID-19 Eval Order Covid19 [facility]Now [facility] SARS-CoV-2, RNA, NAAT NEGATIVE Hospital Course (1) Suicidal ideation: 12/10 -continue voluntary hospitalization, suicide checks for safety. Encourage group attendance and participation. Work on healthy coping skills and discharge safety plan. Family meeting with parents; reviewed recommendations including no access to medications or guns. 12/11 - Pt denies SI today, more focused on discharge - Pt encouraged to focus on group programming - Family meeting via phone with mother today 12/12 -SI has resolved. Patient does not have access to guns as they are kept locked. Family meeting completed with mother, who denied safety concerns and was in favor of discharge. Patient completed safety plan and reviewed with staff. (2) Mood disorder: 12/10 - Reviewed differential diagnosis, including irritable depression or bipolar type II. Reviewed that his symptoms are consistent with irritable depression, but could also represent hypomanic symptoms, although he reports chronic racing thoughts and irritability, rather than discrete episodes of hypomania. He does not meet full criteria for hypomania or bipolar 2. Discussed options of treating with an SSRI versus a mood stabilizer such as lamotrigine, which he did try in the past but cannot recall his response to, was also being taken along with an antipsychotic. Discussed the risks, benefits, and side effects of each, including the need to monitor for mood destabilization if we start with an antidepressant. After discussion he opted for a trial of sertraline. Reviewed the risk of destabilization, worsening irritability or anxiety, and the need to monitor for this, especially when initially starting the medication. Reviewed that it will take 4 to 6 weeks to see the full effect. Start 25 mg daily today and increase to 50 mg daily tomorrow. 12/11 - Continue sertraline trial - patient continues with excessive sleeping on the unit and irritability, but staff have not reported any evidence of activation t hus far. Reviewed titration options to escalate sertraline dosage and patient reported feeling comfortable with dose of 100mg to be given tomorrow. He was reminded again about need to monitor for activation and dramatic mood changes. - Refer for psychiatric medication management - Family meeting with mother via phone this afternoon - Pt was encouraged to spend more time out of his room and engaged in group programming, given that he is reporting he is bored and focused on discharge - Encourage completion of written safety plan 12/12 -Tolerating sertraline 100 mg daily well; prescription issued for #30-day supply. Referred to [facility] for psychiatric care. -Mood has improved, and patient has decided to medically withdraw from college. Letter provided to him to support this decision. (3) Alcohol abuse: 12/10 - Brief intervention was offered and accepted Intervention (if performed) was greater than 5 min in length. Brief interventions include: 1. Assess Readiness to Quit, 2. Advise: Help Patient to Reduce or Abstain from Alcohol, 3. Agree: Set Specific, Feasible Goals, 4. Assist: Anticipate barriers, Problem-Solving Solutions. Social work to 5. Arrange: Referrals to appropriate treatment. Summary of intervention: The patient is in precontemplation stage with regards to transtheoretical model of change. The patient is advised to decrease alcohol consumption due to depressant effects and risk of interactions with prescription medications. The patient agreed to cut back on use, and will be provided with recovery materials to continue to education self on how to cope with their condition without drinking. -Referral for dual diagnosis outpatient treatment. Recovery protocol. 12/11 - Pt has been referred to [facility] for dual-diagnosis counseling - awaiting approval and appointment scheduling (4) Cannabis abuse: 12/10 -patient was smoking daily, reports he stopped 2 weeks ago. Encourage ongoing efforts to reduce substance use, and refer for dual diagnosis outpatient treatment as above. 12/11 - Referred to [facility] as below. Mental Health & Subst Abuse Tx Psychiatrist Name of Psychiatrist: Ale Therapist Name of Therapist: Maria E King Therapist's Date of Therapist Appointment: 12/17/20 Time of Therapist Appointment: 11:00 a.m. Therapy Appointment Comment: Telehealth - will email you directions Post Discharge Appointments Smoking Cessation Counseling Tobacco Cessation Medication Prescribed at Discharge: Offered & Pt Refused Contact Information Discharge Discharge Address: [address] [place], [place] [id number] Discharge Plan Discharge Items Patient Disposition: Home - Self-Care Reason For Visit: BIPOLAR DISORDER, TYPE 2 Discharge Diagnosis: Depression not otherwise specified Activity: Per Instructions section Non-emergency contact: Psychiatrist and Therapist Call non-emergency contact if: you have any medication questions and your symptoms worsen Follow-up/Referrals: Tomas Beth MD [Primary Care Provider] - Diet: Regular Addtl Attending Provider Instructions: SPECIAL CARE INSTRUCTIONS: 1. Follow through with your scheduled aftercare appointments. If unable to keep an appointment, please call to reschedule. 2. Take your medication only as prescribed. Medication should not be changed or stopped without the approval of your doctor. In the event of worsening symptoms or concerns about side effects, contact your doctor immediately. 3. Utilize new healthy coping skills, anger management skills, and stress management skills learned during your hospitalization. Journal feelings and process them with a support person. Identify stressors or situations that may result in relapse, deterioration or inappropriate behaviors and develop a plan to deal with those issues. 4. If your coping skills are ineffective and you are in crisis, contact your outpatient providers for direction. If unable to reach your providers, please call the [facility] CRISIS LINE AT , go to the [facility] walk-in center at [address], [place], or go to the closest Emergency Room. 5. Avoid alcohol and un-prescribed drugs. Follow up with outpatient substance abuse treatment. 6. You have been provided with the Mental Health Advance Directives Pamphlet for your review. AFTERCARE APPOINTMENTS: * Please call your insurance company prior to your scheduled appointment to confirm your aftercare providers are covered. Take your insurance information to your appointments. WHO TO CALL AND WHEN: Medical Emergencies: For questions or emergencies related to your hospital stay, please contact the Inpatient Behavioral Health Unit at [phone]. A public relations account supervisor is on-call 10/05 for the Behavioral Health Unit for emergencies At any time you feel your situation is an emergency, you may also call 911 immediately. Pending Studies at Discharge: No Stand-Alone Forms: My [facility] [place], Smoking Cessation Medications and DC Order Prescriptions: New sertraline 100 mg Tablet 100 mg PO QAM Qty: 30 RF: 0 No Action No Known Home Medications RF: 0 Discharge Orders: Discharge Order (Routine); Ordered 12/12/20 Ordered By: Paulette Mendoza Admission Data Admit Date/Time: 12/10/20 00:44 Attending Provider: Paulette Mendoza Admit Provider: Abigail Schmidt Primary Care Provider: Tomas Beth Other Interventions: PSY Interdisciplinary Discharge Planning Last Done: 12/11/20 20:45 Coding Level of Care Code 37183 D/C day mgmt > 30 min Diagnoses Suicidal ideation R45.851 Mood disorder F39 Alcohol abuse F10.10 Cannabis abuse F12.10
== END 2020-12-12 12:07 | disposition home or self-care (01) | DRG 885 ==
LOC: ED 20:19 → 3S 12-10 00:44